=== PATIENT | male | born 1970 | race Caucasian/White ===

== ENCOUNTER → 2021-07-21 | Emergency (ER) | payer OTHER ==
[~2021-07-21] VITALS: Ht 190.5 cm; Wt 99.8 kg
[~2021-07-21] MED LIST: ZESTRIL20 MG PO
== END | disposition left against medical advice (07) ==
LOC: ER 13:32
DX: N44.00 Torsion of testis, unspecified (principal); Z03.818 Encounter for observation for suspected exposure to other biological agents ruled out

== ENCOUNTER 2021-08-02 06:05 | Day surgery (SDC) | payer OTHER | END 2021-08-02 15:30 | disposition home or self-care (01) | LOC: CIR.AMB 06:05 | PROVIDERS: ATTEND Urology | DX: N44.02 Intravaginal torsion of spermatic cord (principal); Z20.822 Contact with and (suspected) exposure to COVID-19 ==